=== PATIENT | female | born 1965 | race Caucasian/White ===

== ENCOUNTER 2018-11-02 12:09 | Day surgery (SDC) | payer OTHER ==
[2018-11-01 13:10] VITALS: BMI 21.2
[~2018-11-02 12:09] MED LIST: Dexamethasone 20 MG/5 ML VIAL ONE; Ondansetron PF 4 MG/2 ML Vial ONE; PHENYLEPHRINE-NS 100 MCG/ML 10 ML SYRINGE ONE; PROPOFOL 200 MG/20 ML VIAL ONE; ePHEDrine/0.9% NaCl/PF SYRINGE 50 mg/10 ml ONE
[2018-11-02] MEDS ORDERED: Heparin 5,000 UNITS/ML VIAL ONE (12:44)
[2018-11-02] MEDS ORDERED: CEFAZOLIN 2 GM/50 ML BAG ONE (12:44)
[2018-11-02] MEDS ORDERED: Fentanyl 100 MCG/2 ML VIAL ONE (14:51)
[2018-11-02] MEDS ORDERED: Dexamethasone 4 mg/ml Vial ONE (15:04)
[2018-11-02] MEDS ORDERED: Bupivacaine HCl 0.25%/Epi 0.0005/PF 10 ML VIAL FS ONE ×2 (15:04→15:42)
[2018-11-02] MEDS ORDERED: HYDROcodone/Acetaminophen 5/325 mg Tablet ONE (17:35)
--- NOTE | 2018-11-05 09:24 | OP ---
DATE OF PROCEDURE: 11/02/2018 PREOPERATIVE DIAGNOSIS: Lipoma, right shoulder. POSTOPERATIVE DIAGNOSIS: Lipoma, right shoulder. PROCEDURE: Excision of subcutaneous mass, right shoulder (8 cm). DESCRIPTION OF PROCEDURE: Following induction of adequate anesthesia, the patient was prepped and draped in the usual sterile fashion in the lateral position. Ellipse of skin was excised. The lesion was then circumferentially dissected. This involved at the deep margin peeling off the muscular fascia. Of note, the lesion had numerous tendrils which seem like extensions into the surrounding subcutaneous tissues. I plucked every identifiable one of these out. The field was then copiously irrigated and inspected for meticulous hemostasis prior to closure. Closure was achieved using 2-0 V-Loc suture to close the skin out to the underlying fascia. The dermal closure was done with 3-0 PDS suture and 3-0 Monocryl suture. The patient tolerated the procedure well. Job ID: [id number]
== END 2018-11-02 18:10 | disposition home or self-care (01) ==
LOC: SDC 12:09
PROVIDERS: ATTEND Plastic Surgery
PROC: 0JBD0ZZ Excision of Right Upper Arm Subcutaneous Tissue and Fascia, Open Approach (ICD-10-PCS; principal; 2018-11-02)
DX: M79.89 Other specified soft tissue disorders (principal); Z88.5 Allergy status to narcotic agent; Z88.2 Allergy status to sulfonamides; Z79.818 Long term (current) use of other agents affecting estrogen receptors and estrogen levels; Z79.899 Other long term (current) drug therapy
CPT/HCPCS: 88304; J1100; J1644; J2405; J2704; J3010